=== PATIENT | male | born 1945 | race Caucasian/White ===

== ENCOUNTER 2017-03-09 10:14 | Emergency (ER) | payer MEDICARE, SELFPAY ==
[2017-03-09] VITALS (10 sets, daily range): BP systolic 145–182; BP diastolic 76–108; PULSE 54–67; RESP 20–22; TEMP 36.4–36.7; O2SAT 94–99; BMI 30.2
--- NOTE | 2017-03-09 10:43 | XR_ITS ---
XR chest 2V HISTORY: Shortness of air ITS.REASON: SOA ORDERING PHYSICIAN: Sean Burch MD PATIENT AGE: 71 years COMPARISON: 11/01/2016 FINDINGS: There has been a prior median sternotomy. There is mild cardiomegaly without failure. There is chronic coarsening of the bronchovascular markings with increase diffuse prominence of the interstitium. No obvious lobar consolidation or collapse. There is evidence of old granulomatous disease. IMPRESSION: 1. Increasing prominence of the interstitial markings compared to the previous exam and may represent progression of chronic interstitial lung disease versus interstitial pneumonitis superimposed upon chronic change. 2. Cardiomegaly without failure
[2017-03-09 11:06] LABS: Basophils % 0.3 % (0.1-2.0); Eosinophils # 0.3 K/mm3 (0.0-0.4); Eosinophils % 5.7 % (0.1-12.0); Hematocrit 37.6 % (42.0-52.0); Hemoglobin 12.2 g/dL (14.1-18.0); Lymphocytes # 1.2 K/mm3 (0.7-4.5); Mean Corpuscular HGB Conc 32.6 g/dL (31.8-35.4); Mean Corpuscular Hemoglobin 30.7 pg (27.0-31.2); Mean Corpuscular Volume 94.2 fl (80-94); Mean Platelet Volume 8.8 fl (7.4-10.4); Monocytes # 0.3 K/mm3 (0.1-1.0); Monocytes % 5.3 % (1.7-9.3); Neutrophils # 3.8 K/mm3 (1.8-7.8); Neutrophils % 67.7 % (37.0-80.0); Platelet Count 171 K/mm3 (142-424); Red Blood Count 3.99 M/mm3 (4.60-6.20); White Blood Count 5.6 K/mm3 (4.8-10.8)
[2017-03-09 11:22] LABS: Lactic Acid 0.7 mmol/L (0.4-2.0)
--- NOTE | 2017-03-09 11:29 | HMH.EDGENADL ---
ED Disposition Clinical Impression: Peripheral edema Acute on chronic renal failure Qualifiers: Acute renal failure type: unspecified Chronic kidney disease stage: unspecified stage Qualified Code(s): N17.9 - Acute kidney failure, unspecified Disposition: Xfer Short-Term Hosp Condition on Discharge: Good - Critical Care Critical Care Time: No Attestation: On , the high probability of a clinically significant, sudden or life threatening deterioration of the following system(s) required my full and direct attention, intervention and personal management. The time I documented below is in addition to time spent performing reported procedures but includes the following listed in this critical care notation. Medical Decision Making Vital Signs: 03/09/17 10:33 03/09/17 10:47 03/09/17 10:48 Temperature 97.6 F Temperature Source Oral Pulse Rate 61 Pulse Rate [Right Brachial] 67 Respiratory Rate 22 Blood Pressure [Right Arm] 170/90 Blood Pressure Mean [Right Arm] 116 Blood Pressure Source [Right Arm] Automatic Cuff Blood Pressure Position [Right Arm] Sitting 02 Sat by Pulse Oximetry 97 94 L Oxygen Delivery Method Room Air Room Air Oxygen Flow Rate (LPM) 2 03/09/17 11:58 03/09/17 12:36 03/09/17 12:54 Temperature Temperature Source Pulse Rate Pulse Rate [Right Brachial] 61 57 L 57 L Respiratory Rate 20 20 20 Blood Pressure [Right Arm] 166/99 182/108 167/76 Blood Pressure Mean [Right Arm] 121 132 106 Blood Pressure Source [Right Arm] Automatic Cuff Automatic Cuff Automatic Cuff Blood Pressure Position [Right Arm] Sitting Sitting Sitting 02 Sat by Pulse Oximetry 99 99 99 Oxygen Delivery Method Room Air Room Air Nasal Cannula Oxygen Flow Rate (LPM) 2 2 03/09/17 13:41 03/09/17 14:47 Temperature Temperature Source Pulse Rate Pulse Rate [Right Brachial] 54 L 56 L Respiratory Rate 20 20 Blood Pressure [Right Arm] 145/83 147/77 Blood Pressure Mean [Right Arm] 103 100 Blood Pressure Source [Right Arm] Automatic Cuff Automatic Cuff Blood Pressure Position [Right Arm] Sitting Sitting 02 Sat by Pulse Oximetry 98 98 Oxygen Delivery Method Nasal Cannula Nasal Cannula Oxygen Flow Rate (LPM) 2 2 - Lab Data Lab Results 03/09/17 10:40: WBC 5.6, RBC 3.99 L, Hgb 12.2 L, Hct 37.6 L, MCV 94.2 H, MCH 30.7, MCHC 32.6, RDW 15.0, Plt Count 171, MPV 8.8, Neut % (Auto) 67.7, Lymph % (Auto) 21.0, Mills % (Auto) 5.3, Eos % (Auto) 5.7, Baso % (Auto) 0.3, Neut # (Auto) 3.8, Lymph # (Auto) 1.2, Mills # (Auto) 0.3, Eos # (Auto) 0.3, Baso # (Auto) 0.0 03/09/17 10:40: Sodium 137, Potassium 4.3, Chloride 109 H, Carbon Dioxide 24, Anion Gap 8.3, BUN 38 H, Creatinine 5.78 H, Estimated Creat Clear 17, Estimated GFR 10 L*, Est GFR ( Amer) 12 L*, Glucose 130 H, Calcium 8.2 L, Total Bilirubin 0.4, AST 17, ALT 15, Alkaline Phosphatase 78, Total Creatine Kinase 112, CK-MB (CK-2) 3.3, CK-MB (CK-2) Rel Index 2.9, Troponin I < 0.02, Total Protein 7.2, Albumin 3.3 L, Globulin 3.9 H, Albumin/Globulin Ratio 0.8 L 03/09/17 10:40: Lactic Acid 0.7 03/09/17 10:40: B-Natriuretic Peptide 1230 H 03/09/17 10:40: Influenza Type A Ag Negative, Influenza Type B Ag Negative Result diagrams: 03/09/17 10:40 03/09/17 10:40 Orders (Tests/Meds): ED MEDICATIONS Discontinued Medications Generic Name Dose Route Start Last Admin Trade Name Freq PRN Reason Stop Dose Admin Albuterol/Ipratropium 3 ml 03/09/17 10:44 03/09/17 10:46 Duoneb 3ml Neb IH 03/09/17 10:45 3 ml ONCE ONE Administration Furosemide 80 mg 03/09/17 12:01 03/09/17 12:09 Lasix 40mg/4ml Vial IV 03/09/17 12:02 80 mg ONCE ONE Administration ORDERS Category Date Time Status Blood Culture Stat Micro 03/09/17 10:40 Received - Radiology Data #1 Image(s): Chest Image Reviewed: Yes I reviewed the patient's radiology results, Yes I have reviewed radiologist's interpretation Increased interstitial markings and thi
[2017-03-09 12:27] LABS: Alanine Aminotransferase 15 U/L (12-78); Albumin Level 3.3 gm/dL (3.4-5.0); Albumin/Globulin Ratio 0.8 (1.1-1.8); Alkaline Phosphatase 78 U/L (46-116); Anion Gap 8.3 mEq/L (5-15); Aspartate Amino Transferase 17 U/L (15-37); Bilirubin,Total 0.4 mg/dL (0.2-1.0); Blood Urea Nitrogen 38 mg/dL (7-18); CKMB Relative Index 2.9 U/L (0-4.0); Calcium 8.2 mg/dL (8.5-10.1); Carbon Dioxide 24 mmol/L (21.0-32.0); Chloride 109 mmol/L (98-107); Creatine Kinase 112 U/L (39-308); Creatine Kinase MB 3.3 mg/ml (0.0-3.6); Creatinine Clearance Estimated 17 mL/min (0-300); Estimated Glomerular Filt Rate 10 ml/min (>60); GFR (African American) 12 ML/MIN (>60); Globulin 3.9 gm/dl (1.3-3.2); Glucose 130 mg/dL (74-106); Potassium 4.3 mmoL/L (3.5-5.1); Sodium 137 mmol/L (136-145); Total Protein,Serum 7.2 gm/dL (6.4-8.2); Troponin I < 0.02 ng/ml (0.00-0.06)
[2017-03-09 12:31] LABS: Creatinine,Serum 5.78 mg/dL (0.70-1.30)
--- NOTE | 2017-03-09 12:53 | PC.NURSE ---
400ML URINE OUTPUT AT 1253.
--- NOTE | 2017-03-09 14:48 | PC.NURSE ---
300CC URINE OUTPUT AT 1440.
== END 2017-03-09 15:51 | disposition short-term general hospital (02) ==
PROVIDERS: Emergency Provider Emergency Medicine
DX: R60.0 Localized edema (principal); N17.9 Acute kidney failure, unspecified; F17.210 Nicotine dependence, cigarettes, uncomplicated; I50.9 Heart failure, unspecified; I10 Essential (primary) hypertension; I25.2 Old myocardial infarction; J44.9 Chronic obstructive pulmonary disease, unspecified; Z95.1 Presence of aortocoronary bypass graft
CPT/HCPCS: 71046; 80053; 82550; 82553; 83605; 83880; 84484; 85025; 87040; 87275; 87276; 93005; 93041; 96374; 96375; 99284

== ENCOUNTER → 2019-01-19 10:10 | Outpatient (CLI) | payer MEDICARE, SELFPAY ==
[2019-01-19 10:46] LABS: Basophils % 0.1 % (0.1-2.0); Eosinophils # 0.2 K/mm3 (0.0-0.4); Hematocrit 40.2 % (42.0-52.0); Hemoglobin 13.1 g/dL (14.1-18.0); Lymphocytes # 1.6 K/mm3 (0.7-4.5); Lymphocytes % 19.3 % (10-50); Mean Corpuscular HGB Conc 32.5 g/dL (31.8-35.4); Mean Corpuscular Hemoglobin 32.8 pg (27.0-31.2); Mean Corpuscular Volume 100.8 fl (80-94); Mean Platelet Volume 8.5 fl (7.4-10.4); Monocytes # 0.5 K/mm3 (0.1-1.0); Monocytes % 5.6 % (1.7-9.3); Neutrophils # 6.1 K/mm3 (1.8-7.8); Platelet Count 226 K/mm3 (142-424); Red Blood Count 3.99 M/mm3 (4.60-6.20); White Blood Count 8.4 K/mm3 (4.8-10.8)
[2019-01-19 11:42] LABS: Alanine Aminotransferase 14 U/L (12-78); Albumin Level 3.5 gm/dL (3.4-5.0); Alkaline Phosphatase 94 U/L (46-116); Aspartate Amino Transferase 14 U/L (15-37); Bilirubin,Total 0.4 mg/dL (0.2-1.0); Blood Urea Nitrogen 34 mg/dL (7-18); Carbon Dioxide 34 mmol/L (21.0-32.0); Chloride 95 mmol/L (98-107); Chol/HDL Ratio 2.9 (1-3.5); Cholesterol 149 mg/dL (140-200); Estimated Glomerular Filt Rate 8 ml/min (>60); GFR (African American) 9 ML/MIN (>60); Globulin 3.4 gm/dl (1.3-3.2); Glucose 150 mg/dL (74-106); HDL Cholesterol 51 mg/dL (27-67); LDL Cholesterol 59 mg/dL (0-130); Prostate Specific Ag Screen 1.2 ng/mL (0.0-4.0); Sodium 141 mmol/L (136-145); Thyroid Stimulating Hormone 10.76 uIU/ml (0.358-3.740); Total Protein,Serum 6.9 gm/dL (6.4-8.2); Triglycerides 197 mg/dL (30-200); VLDL Cholesterol 39 mg/dL (0-40)
[2019-01-19 13:06] LABS: Creatinine,Serum 7.18 mg/dL (0.70-1.30)
== END ==
PROVIDERS: Visit Provider Family Medicine
DX: N18.6 End stage renal disease; J44.9 Chronic obstructive pulmonary disease, unspecified; E78.5 Hyperlipidemia, unspecified; Z12.5 Encounter for screening for malignant neoplasm of prostate
CPT/HCPCS: 36415; 80053; 80061; 84443; 85025; G0103

== ENCOUNTER → 2019-02-16 12:53 | Outpatient (CLI) | payer MEDICARE, SELFPAY ==
--- NOTE | 2019-02-28 11:26 | PC.NURSE ---
PATIENT SCHEDULED FOR HOME SLEEP TEST - HOWEVER NOT ENOUGH DATA ON DEVICE - NO CHARGE FOR PATIENT WILL TRY TO RESCHEFDULE...
== END ==
PROVIDERS: PCP Family Medicine; Visit Provider Family Medicine
DX: R06.02 Shortness of breath (principal); G47.30 Sleep apnea, unspecified

== ENCOUNTER → 2019-03-28 12:29 | Outpatient (CLI) | payer MEDICARE, SELFPAY ==
--- NOTE | 2019-03-28 12:44 | XR_ITS ---
PROCEDURE: XR KNEE RT 3V CLINICAL INDICATION: ACUTE RT KNEE PAIN Fall with pain and swelling COMPARISON: No exams were available for comparison FINDINGS: No fracture or dislocation. No lytic or blastic change. There is normal mineralization. There are mild osteoarthritic changes of the medial compartment and patellofemoral joint. Other findings:There is generalized vascular calcification IMPRESSION: Mild osteoarthritic change, no acute finding Dictated by: Nadeem South MD 03/28/2019 13:31 Electronically signed by Nadeem South MD in [place] 03/28/2019 13:31
== END ==
PROVIDERS: PCP Family Medicine; Visit Provider Nurse Practitioner Family
DX: M25.561 Pain in right knee (principal)
CPT/HCPCS: 73562